=== PATIENT | female | born 1990 | race Caucasian/White ===

== ENCOUNTER 2016-11-27 14:45 | Observation (INO) | payer BC ==
[2016-11-27] MEDS ORDERED: IV VANCOMYCIN PER PHARMACY 1 EACH MISC MISCELLANE PRN (16:24)
[2016-11-27] MEDS ORDERED: diphenhydrAMINE 50 MG/ML 1 ML VIAL IVP STA (16:25)
[2016-11-27 16:39] LABS: Basophils # (A) 0.1 k/uL (0-0.2); Basophils % (A) 1 %; CH 29.9; CHCM 31.8; Eosinophils # (A) 0.2 k/uL (0-0.7); Eosinophils % (A) 2 %; HDW 1.91; HGB 13.9 gm/dL (11.4-16.0); Luc % (Auto) 2; Lymphocytes # (A) 2.8 k/uL (1.0-4.8); Lymphocytes % (A) 25 %; MCH 30.5 pg (25.0-35.0); MCHC 32.2 g/dL (31.0-37.0); MCV 94.6 fL (80.0-100.0); Mean Platelet Volume 7.1; Monocytes # (A) 0.5 k/uL (0-1.0); Monocytes % (A) 4 %; Neutrophils # (A) 7.7 k/uL (1.3-7.7); Neutrophils % (A) 67 %; RBC 4.55 m/uL (3.80-5.40); RDW 13.3 % (11.5-15.5); WBC 11.5 k/uL (3.8-10.6); WBC (Perox) 11.38
--- NOTE | 2016-11-27 16:39 | ED ---
Skin/Abscess/FB HPI - General Source: patient, RN notes reviewed Mode of arrival: ambulatory Limitations: no limitations <Samia Valenzuela - Last Filed: 11/27/16 17:05> <David Hatch - Last Filed: 11/27/16 17:11> - General Chief complaint: Skin/Abscess/Foreign Body Stated complaint: spider bite-sent by Dr. Noonan Seen by Provider: 11/27/16 15:53 - History of Present Illness Initial comments: Patient is a 26-year-old female presents to the emergency room for evaluation of possible left arm insect bite. Patient states she woke up yesterday morning with a small mosquito bite appearing lesion on the volar portion of her wrist. Patient states throughout the day the area began to appear more red and swollen. Patient states by last night the area was swollen with redness surrounding the bite. Patient states that she woke up this morning and noticed redness began to streak up her arm. Patient states by the time she went to go see Dr. Rush the redness is streaked up to her elbow. Patient states she was evaluated by the PA there and 2 other physicians and was advised to come to the emergency room for IV antibiotics. Patient states the area is itchy and painful. Patient denies any numbness or tingling in her hand unless someone presses over the bite area. Patient denies fevers or chills. Patient denies nausea or vomiting. Patient states she is up-to-date on all her immunizations. (Samia Valenzuela) - Related Data Home Medications Medication Instructions Recorded Confirmed Control 1 tab PO DAILY 11/27/16 11/27/16 Allergies Allergy/AdvReac Type Severity Reaction Status Date / Time No Known Allergies Allergy Verified 11/27/16 15:20 Review of Systems ROS Other: All systems not noted in ROS Statement are negative. <Samia Valenzuela - Last Filed: 11/27/16 17:05> ROS Other: All systems not noted in ROS Statement are negative. <David Hatch - Last Filed: 11/27/16 17:11> ROS Statement: Those systems with pertinent positive or pertinent negative responses have been documented in the HPI. Past Medical History Past Medical History: No Reported History History of Any Multi-Drug Resistant Organisms: None Reported Past Surgical History: No Surgical Hx Reported Past Psychological History: No Psychological Hx Reported Smoking Status: Never smoker Past Alcohol Use History: Occasional Past Drug Use History: None Reported <Samia Valenzuela - Last Filed: 11/27/16 17:05> General Exam Limitations: no limitations General appearance: alert, in no apparent distress Head exam: Present: atraumatic, normocephalic, normal inspection Eye exam: Present: normal appearance ENT exam: Present: normal exam Neck exam: Present: normal inspection Respiratory exam: Present: normal lung sounds bilaterally. Absent: respiratory distress Cardiovascular Exam: Present: regular rate, normal rhythm, normal heart sounds Left Hand Wrist exam: Absent: normal inspection (insect bite appearing leasion on the distal volar wrist with surrounding erythema and edema. Streaking from lesion on the volar portion of the forearm to the crease of the elbow. ) Neuro motor exam: Present: wrist extension intact, thumb opposition intact, thumb IP flexion intact, thumb adduction intact, fingers 2-5 abduction intact Vascular: Present: normal capillary refill (Capillary refill less than 2 seconds ), radial pulse (2+), ulnar pulse (2+) Back exam: Present: normal inspection Neurological exam: Present: alert, oriented X3, CN II-XII intact, normal gait Psychiatric exam: Present: normal affect, normal mood Skin exam: Present: warm, dry. Absent: rash <Samia Valenzuela - Last Filed: 11/27/16 17:05> <David Hatch - Last Filed: 11/27/16 17:11> - General Exam Comments Initial Comments: Sitting in exam room, no acute distress. (Samia Valenzuela) Course <Samia Valenzuela - Last Filed: 11/27/16 17:05> <David Hatch - Last Filed: 11/27/16 17:11> Vital Signs 11/27/16 15:15 Temperature 98.6 F Pulse Rate 81 Respiratory 16 Rate Blood Pressure 140/86 O2 Sat by Pulse 99 Oximetry - Reevaluation(s) Reevaluation #1: 11/27/16 17:11 Patient reevaluated by myself, Dr. Hatch. Patient does have evidence of insect bite left wrist. There is lymphangitic streaking up near the left elbow. Patient states streaking just started today. Patient was seen in the primary care physician and sent to emergency department for IV antibiotics. Case discussed in detail with Dr. Wiley, who will admit for Dr. Hernandes. IV antibiotics will be started (David Hatch) Medical Decision Making - Lab Data Result diagrams: 11/27/16 16:23 11/27/16 16:23 <Samia Valenzuela - Last Filed: 11/27/16 17:05> - Lab Data Result diagrams: 11/27/16 16:23 11/27/16 16:23 <David Hatch - Last Filed: 11/27/16 17:11> - Medical Decision Making Patient is a 26-year-old female presents emergency room for evaluation of an infected insect bite. Patient discussed with Dr. Hatch. Dr. Hatch discussed case with Dr. Wiley who agreed to admit patient. Patient will be started on IV vancomycin. Plan discussed with patient. (Samia Valenzuela) - Lab Data Lab Results 11/27/16 11/27/16 11/27/16 Range/Units 16:23 16:23 16:23 WBC 11.5 H (3.8-10.6) k/uL RBC 4.55 (3.80-5.40) m/uL Hgb 13.9 (11.4-16.0) gm/dL Hct 43.0 (34.0-46.0) % MCV 94.6 (80.0-100.0) fL MCH 30.5 (25.0-35.0) pg MCHC 32.2 (31.0-37.0) g/dL RDW 13.3 (11.5-15.5) % Plt Count 336 (150-450) k/uL Neutrophils % 67 % Lymphocytes % 25 % Monocytes % 4 % Eosinophils % 2 % Basophils % 1 % Neutrophils # 7.7 (1.3-7.7) k/uL Lymphocytes # 2.8 (1.0-4.8) k/uL Monocytes # 0.5 (0-1.0) k/uL Eosinophils # 0.2 (0-0.7) k/uL Basophils # 0.1 (0-0.2) k/uL Sodium 143 (137-145) mmol/L Potassium 4.4 (3.5-5.1) mmol/L Chloride 107 (98-107) mmol/L Carbon Dioxide 25 (22-30) mmol/L Anion Gap 11 mmol/L BUN 14 (7-17) mg/dL Creatinine 0.82 (0.52-1.04) mg/dL Est GFR (MDRD) Af Amer >60 (>60 ml/min/1.73 sqM) Est GFR (MDRD) Non-Af >60 (>60 ml/min/1.73 sqM) Glucose 81 (74-99) mg/dL Plasma Lactic Acid Tod 0.9 (0.7-2.0) mmol/L Calcium 9.3 (8.4-10.2) mg/dL Total Bilirubin 0.5 (0.2-1.3) mg/dL AST 19 (14-36) U/L ALT 16 (9-52) U/L Alkaline Phosphatase 52 (38-126) U/L Total Protein 7.5 (6.3-8.2) g/dL Albumin 4.4 (3.5-5.0) g/dL Disposition Decision Date: 11/27/16 <Samia Valenzuela - Last Filed: 11/27/16 17:05> <David Hatch - Last Filed: 11/27/16 17:11> Clinical Impression: Infected insect bite of left arm Disposition: ADMITTED IP TO THIS HOSP Condition: Stable Referrals: Lidia Rees MD [Primary Care Provider] - 1-2 days
[2016-11-27 16:44] LABS: ALT 16 U/L (9-52); AST 19 U/L (14-36); Alkaline Phosphatase 52 U/L (38-126); Anion Gap 11 mmol/L; Blood Urea Nitrogen 14 mg/dL (7-17); Calcium 9.3 mg/dL (8.4-10.2); Carbon Dioxide 25 mmol/L (22-30); Chloride 107 mmol/L (98-107); Glucose 81 mg/dL (74-99); Non-African American GFR(MDRD) >60 (>60 ml/min/1.73 sqM); Potassium 4.4 mmol/L (3.5-5.1); Sodium 143 mmol/L (137-145); Total Bilirubin 0.5 mg/dL (0.2-1.3); Total Protein 7.5 g/dL (6.3-8.2)
[2016-11-27] MEDS ORDERED: VANCOMYCIN 1,250 MG in SODIUM CHLORIDE 0.9% 250 ML IVPB ONE (16:45)
[2016-11-27] MEDS ORDERED: ACETAMINOPHEN TAB 325 MG TAB PO PRN (16:46)
[2016-11-27] MEDS ORDERED: NALOXONE 0.4 MG/ML 1 ML VIAL IV PRN (16:46)
[2016-11-27] MEDS ORDERED: ONDANSETRON 4 MG/2 ML VIAL IVP PRN (16:46)
[2016-11-27] MEDS ORDERED: SODIUM CHLORIDE 0.9% 1,000 ML IV SCH (17:00)
[2016-11-27] MEDS ORDERED: diphenhydrAMINE 50 MG/ML 1 ML VIAL IVP SCH (18:00)
[2016-11-27 20:34] VITALS: BMI 25.7
[2016-11-27] MEDS: KETOROLAC 30 MG/ML 1 ML VIAL IVP PRN (20:38)
[2016-11-27] MEDS: diphenhydrAMINE 50 MG/ML 1 ML VIAL IVP SCH (23:50)
[2016-11-27] MEDS: VANCOMYCIN 1,250 MG in SODIUM CHLORIDE 0.9% 250 ML IVPB SCH (23:54)
[2016-11-28 00:13] VITALS: RESP 16
[2016-11-28] MEDS: KETOROLAC 30 MG/ML 1 ML VIAL IVP PRN (02:28)
[2016-11-28] MEDS: diphenhydrAMINE 50 MG/ML 1 ML VIAL IVP SCH ×2 (06:04→12:26)
[2016-11-28] MEDS: VANCOMYCIN 1,250 MG in SODIUM CHLORIDE 0.9% 250 ML IVPB SCH (08:26)
[2016-11-28 08:52] VITALS: BP 117/69; PULSE 72; TEMP 98.6
[2016-11-28] MEDS ORDERED: VANCOMYCIN TROUGH DUE 1 EACH MISC MISCELLANE ONE (15:00)
--- NOTE | 2016-11-28 17:18 | HP ---
DATE OF ADMISSION: This dictation is both H&P and discharge summary. Patient is a 26-year-old, came in after left arm insect bite and patient's insect bite is just on the volar aspect just below the wrist joint with swelling, redness in the surrounding area. The patient was started on vancomycin with significant improvement in symptoms. Patient follows with Dr. Lidia Rees as an outpatient. Patient has streaking. Patient will be discharged on Bactrim for a week. The area of the bite is itchy and painful, which completely resolved at this point of time. Patient denied any nausea, vomiting, but denied any fevers or chills. The patient does have a little bit of leukocytosis because of cellulitis. Patient is clinically doing well and will be discharged on Bactrim today. Home medications include: control pills. ROS: All other systems were reviewed and were negative. ALLERGIES: No known drug allergies. PAST MEDICAL HISTORY: None. SOCIAL HISTORY: Denied any smoking or alcohol abuse or any drug abuse. FAMILY HISTORY: Thyroid problems in the past in the family and kidney cancer in the family. PHYSICAL EXAMINATION: VITAL SIGNS: Temperature 98.6, pulse of 72, respiratory rate of 16, blood pressure is 117/69, saturating at 99% on room air. GENERAL: The patient is alert and oriented x3, not in any acute distress. Well developed, well nourished. HEENT: Pupils are round and equally reacting to light. EOMI. No scleral icterus. No conjunctival pallor. Normocephalic, atraumatic. No pharyngeal erythema. No thyromegaly. CARDIOVASCULAR: S1 and S2 present. No murmurs, rubs, or gallops. PULMONARY: Chest is clear to auscultation, no wheezing or crackles. ABDOMEN: Soft, nontender, nondistended, normoactive bowel sounds. No palpable organomegaly. MUSCULOSKELETAL: No joint swelling or deformity. EXTREMITIES: No cyanosis, clubbing, or pedal edema. NEUROLOGICAL: Gross neurological examination did not reveal any focal deficits. SKIN: Patient's cellulitis is completely resolved and patient has a visible bite on the volar aspect just below the wrist area on the forearm. Patient's joint movements at the wrist joint and finger joints is essentially within normal limits. Actually redness completely resolved at this point of time. Patient does have leukocytosis as mentioned above. ASSESSMENT AND PLAN: Cellulitis of the wrist secondary to the bite. Patient will be discharged on Bactrim as mentioned above. Patient received vancomycin. Patient was asked to take Benadryl [id number] if she has itching and patient is not requiring any pain medications. I asked her to take [id number] Advil or ibuprofen if needed. Patient can continue her -control pills. Patient will follow with Dr. Lidia Rees in about 3 to 5 days. Activity as tolerated. Regular diet. MTDD
== END 2016-11-28 12:33 | disposition home or self-care (01) ==
LOC: EC 14:45 → 6PED 17:12
PROVIDERS: ADMIT Internal Medicine; ATTEND Internal Medicine
DX: S60.862A Insect bite (nonvenomous) of left wrist, initial encounter (principal); L03.114 Cellulitis of left upper limb; W57.XXXA Bitten or stung by nonvenomous insect and other nonvenomous arthropods, initial encounter; Z79.3 Long term (current) use of hormonal contraceptives
CPT/HCPCS: 96361 ×2; 96366 ×2; 96375 ×2; 96376; 96365; 99284; 36415; 80053; 83605; 85025; 87040; G0378 ×2; J3370 ×2; J1200 ×2; J1885 ×2